=== PATIENT | female | born 1990 | race Caucasian/White ===

== ENCOUNTER 2016-05-08 16:54 | Emergency (ER) | payer MEDICAID ==
[~2016-05-08] VITALS: Ht 157.5 cm; Wt 49.9 kg
[2016-05-08 17:24] VITALS: BP 106/51
--- NOTE | 2016-05-08 17:43 | NUR ---
Patient ambulated to bed 03.
--- NOTE | 2016-05-08 17:51 | NUR ---
PATIENT PRESENTS TO ED WITH SORE THROAT,COUGHING, RUNNY NOSE, BOTH EAR PAIN, FEVER X3 WEEKS DENIES N/V/D; SKIN IS PINK/WARM/DRY; AAOX4 WITH EVEN AND STEADY GAIT; LUNGS CLEAR BL; HR EVEN AND REGULAR; PT DENIES ANY CP, SOB; PATIENT STATES PAIN OF 7/10 AT THIS TIME; PATIENT POSITIONED FOR COMFORT; HOB ELEVATED; BEDRAILS UP X2; BED DOWN.
[2016-05-08 18:18] VITALS: BP 106/51
--- NOTE | 2016-05-08 18:19 | NUR ---
Patient discharged with v/s stable. Written and verbal after care instructions given and explained. Patient verbalized understanding. Ambulatory with steady gait. All questions addressed prior to discharge. Advised to follow up with PMD.
== END 2016-05-08 18:19 | disposition home or self-care (01) ==
LOC: MED 16:54
DX: J02.8 Acute pharyngitis due to other specified organisms (principal); B97.89 Other viral agents as the cause of diseases classified elsewhere

== ENCOUNTER 2016-07-05 21:07 | Emergency (ER) | payer MEDICAID ==
[~2016-07-05] VITALS: Ht 157.5 cm; Wt 49.9 kg
--- NOTE | 2016-07-05 21:48 | NUR ---
PT TAKEN TO BED 6
--- NOTE | 2016-07-05 22:06 | NUR ---
26Y/F PATIENT PRESENTS TO ED WITH C/O UTI SYMPTOMS X 2 WKS . PT STATES HAVING ABDOMINAL PAIN, VAGINAL PAIN X 2 WKS, TODAY PAIN INCREASES . DENIES N/V/D; SKIN IS PINK/WARM/DRY; AAOX4 WITH EVEN AND STEADY GAIT; LUNGS CLEAR BL; HR EVEN AND REGULAR; PT DENIES ANY FEVER, CP, SOB, OR COUGH AT THIS TIME; PATIENT STATES PAIN OF 8/10 AT THIS TIME; VSS; PATIENT POSITIONED FOR COMFORT; HOB ELEVATED; BEDRAILS UP X2; BED DOWN. ER MD MADE AWARE OF PT STATUS.
--- NOTE | 2016-07-05 22:42 | NUR ---
Dr. Florentino evaluating patient at bedside.
--- NOTE | 2016-07-05 22:59 | NUR ---
Ultrasound at bedside.
[2016-07-05] MEDS ORDERED: fentaNYL 0.05 MG/ML VIAL IM ONE (23:35)
[2016-07-06 01:00] VITALS: BP 110/61
--- NOTE | 2016-07-06 01:00 | NUR ---
Patient discharged with v/s stable. Written and verbal after care instructions given and explained. Patient alert, oriented and verbalized understanding of instructions. Ambulatory with steady gait. All questions addressed prior to discharge. ID band removed. Patient advised to follow up with PMD. Rx of BACTRIM DS 800/160 MG, NORCO 5/325 MG given. Patient educated on indication of medication including possible reaction and side effects. Opportunity to ask questions provided and answered.
== END 2016-07-06 01:00 | disposition home or self-care (01) ==
LOC: MED 21:07
DX: N83.201 Unspecified ovarian cyst, right side (principal)
CPT/HCPCS: 76856; 81002; 81025; 96372; 99284; J3010; Q0092

== ENCOUNTER 2016-07-09 18:03 | Emergency (ER) | payer MEDICAID ==
[~2016-07-09] VITALS: Ht 157.5 cm; Wt 50.3 kg
[2016-07-09 18:48] VITALS: BP 116/70
--- NOTE | 2016-07-09 21:00 | NUR ---
Patient to bed 03. Dr. Mateo donisuting patient.
--- NOTE | 2016-07-09 21:00 | NUR ---
PT PRESENTS TO ER W/C/O EAR PAIN X2 DAYS. PT STATES SHE SAW HER PCP 1 WEEK AGO AND WAS GIVEN EAR DROPS FOR WAX BUILDUP, BUT THE PAIN HAS PERSISTED.
[2016-07-09 21:20] VITALS: BP 117/81
--- NOTE | 2016-07-09 21:20 | NUR ---
Patient discharged with v/s stable. Written and verbal after care instructions given and explained. Patient verbalized understanding. Ambulatory with steady gait. All questions addressed prior to discharge. Advised to follow up with PMD. Addendum: 07/09/16 at 2130 by MEDND Patient discharged with v/s stable BY ER MD DR PALMER . Written and verbal after care instructions given and explained BY CHRISTIANO PALMER. Patient verbalized understanding. Ambulatory with steady gait. All questions addressed prior to discharge. Advised to follow up with PMD BY CHRISTIANO PALMER.
== END 2016-07-09 21:20 | disposition home or self-care (01) ==
LOC: MED 18:03
DX: H61.22 Impacted cerumen, left ear (principal)
CPT/HCPCS: 99283

== ENCOUNTER 2017-07-25 20:47 | Emergency (ER) | payer OTHER ==
[~2017-07-25] VITALS: Ht 157.5 cm; Wt 54.4 kg
[2017-07-25 21:15] VITALS: BP 100/65
--- NOTE | 2017-07-25 21:25 | NUR ---
PT AMB TO ER CHAIR E
--- NOTE | 2017-07-25 21:30 | NUR ---
PATIENT IS A 27 Y/O FEMALE WHO PRESENTS TO THE ED C/O COLD SYMPTOMS. PT STATES IT HAS BEEN GOING ON X4 DAYS. PT REPORTS 10/10 ACHING BODY PAIN AND CHILLS. PT DENIES CP, SOB, N/V/D. PT AAOX4, RR EVEN/UNLABORED. PT REPOSITIONED FOR COMFORT, BED IN LOWEST POSITION. ER MD DR. PALMER NOTIFIED. WILL CONTINUE TO MONITOR.
--- NOTE | 2017-07-25 22:01 | NUR ---
PATIENT DC BY DR. PALMER.
[2017-07-25 22:02] VITALS: BP 107/71
--- NOTE | 2017-07-25 22:02 | NUR ---
Patient discharged with v/s stable. Written and verbal after care instructions given and explained. Patient alert, oriented and verbalized understanding of instructions. Ambulatory with steady gait. All questions addressed prior to discharge. ID band removed. Patient advised to follow up with PMD. Rx of PROMETHAZINE DM 6.25MG-15MG/5ML AND AUGMENTIN 500MG given. Patient educated on indication of medication including possible reaction and side effects. Opportunity to ask questions provided and answered.
== END 2017-07-25 22:02 | disposition home or self-care (01) ==
LOC: MED 20:47
DX: J20.9 Acute bronchitis, unspecified (principal)
CPT/HCPCS: 99283